=== PATIENT | male | born 1940 | race African-American/Black ===

== ENCOUNTER 2023-09-17 13:43 | Inpatient (IN) | payer MEDICARE ==
[~2023-09-17] VITALS: Ht 172.7 cm; Wt 77.1 kg
[2023-09-17] MEDS ORDERED: NATE60TA4 PO (14:07)
[2023-09-17] MEDS ORDERED: HYDR-4209 PO (14:07)
[2023-09-17] MEDS ORDERED: FINA5TAB11 PO (14:07)
[2023-09-17] MEDS ORDERED: PANT40TA49 PO (14:07)
[2023-09-17] MEDS ORDERED: POLY17PO4 PO (14:07)
[2023-09-17] MEDS ORDERED: APIX2.5T PO (14:07)
[2023-09-17] MEDS ORDERED: PREG75CA PO (14:07)
[2023-09-17] MEDS ORDERED: SITA50TA PO (14:07)
[2023-09-17] MEDS ORDERED: PATI8.4P PO (14:07)
[2023-09-17] MEDS ORDERED: AMLO-212 PO (14:07)
[2023-09-17] MEDS ORDERED: CARV6.252 PO (14:07)
[2023-09-17] MEDS ORDERED: OXYB5TAB16 PO (14:07)
[2023-09-17] MEDS ORDERED: ESCI5TAB PO (14:07)
[2023-09-17] MEDS ORDERED: ATOR40TA PO (14:07)
[2023-09-17 14:28] LABS: BASOPHILS % (AUTO) 0.3 % (0.0-2.0); EOSINOPHILS # (AUTO) 0.2 K/uL (0.0-0.7); EOSINOPHILS % (AUTO) 1.9 % (0.0-7.0); HEMATOCRIT 25.3 % (36.7-47.1); HEMOGLOBIN 8.1 g/dL (12.5-16.3); LYMPHOCYTES % (AUTO) 10.3 % (20.5-51.5); MEAN CORPUSCULAR HEMOGLOBIN 26.5 uug (23.8-33.4); MEAN CORPUSCULAR HGB CONC 32 g/dL (32.5-36.3); MEAN CORPUSCULAR VOLUME 82.6 fL (73.0-96.2); MONOCYTES # (AUTO) 0.8 K/uL (0.1-1.30); MONOCYTES % (AUTO) 8.8 % (0.0-11.0); NEUTROPHILS # (AUTO) 7.5 K/uL (1.8-8.9); NEUTROPHILS % (AUTO) 78.7 % (38.5-71.5); PLATELET COUNT (AUTO) 268 K/uL (152-348); RED BLOOD CELL COUNT(AUTO) 3.07 MIL/uL (4.06-5.63); WHITE BLOOD COUNT (AUTO) 9.6 K/uL (3.6-10.2)
[2023-09-17 14:42] LABS: DIFFERENTIAL COMMENT 1
[2023-09-17 14:52] LABS: MAGNESIUM 2.6 mg/dL (1.8-2.4)
[2023-09-17 14:53] LABS: CALCIUM 8.9 mg/dL (8.5-10.1); CARBON DIOXIDE 22 mmol/L (21-32); CHLORIDE 107 mmol/L (98-107); CREATININE 2.7 mg/dL (0.6-1.3); GLUCOSE 99 mg/dL (74-106); POTASSIUM 5.8 mmol/L (3.5-5.1); SODIUM SERUM 141 mmol/L (136-145); UREA NITROGEN, BLOOD 68 mg/dL (7-18)
[2023-09-17 14:56] LABS: ETHANOL < 3 MG/DL (0-10)
[2023-09-17 14:57] LABS: *BILIRUBIN,URIN NEGATIVE (NEGATIVE); *BLOOD, URINE 1+ (NEGATIVE); *CLARITY,URINE CLEAR (CLEAR); *COLOR,URINE YELLOW (YELLOW); *KETONES,URINE NEGATIVE (NEGATIVE); *UROBILINOGEN,URINE 0.2 E.U./dl (NORMAL); LEUKOCYTE ESTERASE ,URINE 2+ (NEGATIVE); NITRITE, URINE POSITIVE (NEGATIVE); PH,URINE >=9.0 (5.0-8.0); UGLUCOSE NEGATIVE (NEGATIVE)
[2023-09-17 15:04] LABS: AMMONIA < 10 umol/L (11-32)
[2023-09-17 15:06] LABS: *PROTEIN,URINE 3+ (NEGATIVE)
[2023-09-17 15:06] LABS: ALANINE AMINOTRANSFERASE 18 U/L (16-63); ALBUMIN 2.8 g/dL (3.4-5.0); ALKALINE PHOSPHATASE 107 U/L (50-136); ASPARTATE AMINOTRANSFERASE 16 U/L (15-37); BILIRUBIN,DIRECT < 0.1 mg/dL (0.0-0.2); BILIRUBIN,TOTAL 0.3 mg/dL (0.2-1.0); C-REACTIVE PROTEIN 11.22 mg/dL (0.00-0.30); NT-PRO BNP 4695 pg/mL (0-125); TOTAL PROTEIN, SERUM 7.7 g/dL (6.4-8.2)
[2023-09-17 15:08] LABS: THYROID STIMULATING HORMONE 1.325 mIU/mL (0.358-3.740)
[2023-09-17 15:08] LABS: *AMPHETAMINE, URINE NEGATIVE (NEGATIVE); *BARBITURATE, URINE NEGATIVE (NEGATIVE); *BENZODIAZEPINE, URINE NEGATIVE (NEGATIVE); *CANNABINOID, URINE POSITIVE (NEGATIVE); *COCCAINE, URINE NEGATIVE (NEGATIVE); *OPIATE, URINE NEGATIVE (NEGATIVE); *PHENCYCLIDINE SCREEN,URINE NEGATIVE (NEGATIVE)
[2023-09-17] MEDS: PIPERACILLIN SODIUM/TAZOBACTAM 3.375 G in IV DEXTROSE 5% 50 ML IV ONE ×2 (15:15→17:55)
[2023-09-17] MEDS ORDERED: AZITHROMYCIN 250 MG TABLET PO ONE (15:15)
[2023-09-17 15:23] LABS: FENTANYL, URINE NEGATIVE (NEGATIVE)
[2023-09-17] MEDS ORDERED: AZITHROMYCIN 250 MG TABLET ONE (15:23)
[2023-09-17 15:29] LABS: BACTERIA,URINE MANY /HPF (NONE SEEN); RBC,URINE 0-3 /HPF (0-3); TRIPLE PHOSPHATE CRYSTAL,UR FEW /HPF (NONE SEEN)
[2023-09-17] MEDS ORDERED: ALBUTEROL SULFATE 2.5 MG/3 ML NEBU NEB ONE (17:00)
[2023-09-17 17:20] VITALS: O2SAT 96
[2023-09-17 17:45] VITALS: O2SAT 100
[2023-09-17] MEDS ORDERED: PIPERACILLIN/TAZOBACTAM/D5W 50 ML IV ONE (17:49)
[2023-09-17] MEDS ORDERED: ACETAMINOPHEN 325 MG TABLET PO PRN (19:30)
[2023-09-17] MEDS ORDERED: HYDROCODONE/APAP 5-325MG TABLET PO PRN (19:30)
[2023-09-17] MEDS ORDERED: MORPHINE SULFATE 2 MG/1 ML DISP.SYRIN IV PRN (19:30)
[2023-09-17] MEDS ORDERED: ONDANSETRON 4 MG/2 ML VIAL IV PRN (19:30)
[2023-09-17] MEDS ORDERED: SODIUM POLYSTYRENE SULFONATE 15 G/60 ML LIQUID UDC PO ONE (19:30)
[2023-09-17] MEDS ORDERED: IV 1/2NS 1000 ML 1,000 ML IV PRN (19:30)
[2023-09-17] MEDS ORDERED: FINASTERIDE 5 MG TABLET ONE (21:25)
[2023-09-17] MEDS ORDERED: ATORVASTATIN 20 MG TABLET ONE (21:26)
[2023-09-17] MEDS ORDERED: SODIUM POLYSTYRENE SULFONATE 15 G/60 ML LIQUID UDC ONE (21:26)
[2023-09-17] MEDS ORDERED: VANCOMYCIN IV 1,500 MG in IV DEXTROSE 5% 500 ML IV ONE (21:30)
[2023-09-17] MEDS: ATORVASTATIN 40 MG TABLET PO SCH (21:35)
[2023-09-17] MEDS: FINASTERIDE 5 MG TABLET PO SCH (21:36)
[2023-09-17] MEDS ORDERED: VANCOMYCIN 1000 MG VIAL ONE (23:37)
[2023-09-17] MEDS ORDERED: VANCOMYCIN HCL 500 MG VIAL ONE (23:37)
[2023-09-18] VITALS (7 sets, daily range): BP systolic 122; BP diastolic 63; TEMP 98.4; O2SAT 95–100
[2023-09-18] MEDS ORDERED: PIPERACILLIN/TAZOBACTAM/D5W 50 ML ONE ×3 (01:46→12:46)
[2023-09-18] MEDS: PIPERACILLIN/TAZO 2.25 G in IV DEXTROSE 5% 50 ML IV SCH ×2 (01:58→04:14)
[2023-09-18] MEDS: PANTOPRAZOLE SODIUM 40 MG TABLET.DR PO SCH (07:00)
[2023-09-18] MEDS ORDERED: PANTOPRAZOLE SODIUM 40 MG TABLET.DR PO ONE (08:31)
[2023-09-18] MEDS ORDERED: MIRALAX 17 GM POWD.PACK ONE (08:31)
[2023-09-18] MEDS ORDERED: PREGABALIN 25 MG CAPSULE ONE ×2 (08:32→16:32)
[2023-09-18] MEDS ORDERED: PREGABALIN 50 MG CAPSULE ONE ×2 (08:32→16:33)
[2023-09-18] MEDS ORDERED: CARVEDILOL 6.25 MG TABLET ONE ×2 (08:32→16:32)
[2023-09-18] MEDS ORDERED: AMLODIPINE 5 MG TABLET ONE (08:32)
[2023-09-18] MEDS ORDERED: ESCITALOPRAM OXALATE 10 MG TABLET ONE ×2 (08:32→16:32)
[2023-09-18] MEDS: MIRALAX 17 GM POWD.PACK PO SCH (08:44)
[2023-09-18] MEDS: APIXABAN 2.5 MG TABLET PO SCH ×2 (08:44→17:20)
[2023-09-18] MEDS: CARVEDILOL 6.25 MG TABLET PO SCH ×2 (08:44→17:13)
[2023-09-18] MEDS: AMLODIPINE 5 MG TABLET PO SCH (08:44)
[2023-09-18] MEDS: PREGABALIN 25 MG CAPSULE PO SCH ×2 (08:44→16:38)
[2023-09-18] MEDS: ESCITALOPRAM OXALATE 10 MG TABLET PO SCH ×2 (08:44→16:37)
[2023-09-18] MEDS ORDERED: PANTOPRAZOLE SODIUM 40 MG TABLET.DR PO SCH (09:00)
[2023-09-18] MEDS ORDERED: DEXTROSE 50% 50 ML DISP.SYRIN IV PRN (12:00)
[2023-09-18] MEDS: ALBUTEROL SULFATE 2.5 MG/ 0.5 ML NEBU NEB SCH ×3 (12:00→19:55)
[2023-09-18] MEDS: ACETYLCYSTEINE 10% 4ML VIAL NEB SCH ×2 (12:00→15:19)
[2023-09-18] MEDS ORDERED: PIPERACILLIN/TAZO 2.25 G in IV DEXTROSE 5% 50 ML IV SCH (12:00)
[2023-09-18] MEDS: IPRATROPIUM BROMIDE 0.5 MG/2.5 ML NEBU NEB SCH ×3 (12:00→19:54)
[2023-09-18] MEDS ORDERED: FUROSEMIDE 40 MG/4 ML VIAL ONE ×2 (12:46→21:05)
[2023-09-18] MEDS: FUROSEMIDE 40 MG/4 ML VIAL IV SCH ×2 (12:56→21:08)
[2023-09-18] MEDS ORDERED: ALBUTEROL SULFATE 2.5 MG/3 ML NEBU ONE ×3 (13:23→19:45)
[2023-09-18] MEDS ORDERED: IPRATROPIUM BROMIDE 0.5 MG/2.5 ML NEBU ONE ×3 (13:23→19:45)
[2023-09-18] MEDS ORDERED: ACETYLCYSTEINE 10% 4ML VIAL ONE ×2 (13:23→15:21)
[2023-09-18] MEDS ORDERED: VANCOMYCIN IV 1,000 MG in IV DEXTROSE 5% 250 ML IV ONE (15:00)
[2023-09-18] MEDS: BLOOD SUGAR DIAGNOSTIC 1 EACH STRIP VI SCH ×2 (16:43→21:18)
[2023-09-18 16:58] LABS: BASOPHILS % (AUTO) 0.2 % (0.0-2.0); EOSINOPHILS % (AUTO) 0.1 % (0.0-7.0); HEMATOCRIT 24.3 % (36.7-47.1); HEMOGLOBIN 7.7 g/dL (12.5-16.3); LYMPHOCYTES # (AUTO) 0.8 K/uL (0.8-4.8); MEAN CORPUSCULAR HEMOGLOBIN 26.7 uug (23.8-33.4); MEAN CORPUSCULAR HGB CONC 32 g/dL (32.5-36.3); MEAN CORPUSCULAR VOLUME 84.3 fL (73.0-96.2); MONOCYTES # (AUTO) 0.8 K/uL (0.1-1.30); MONOCYTES % (AUTO) 6.9 % (0.0-11.0); NEUTROPHILS # (AUTO) 9.4 K/uL (1.8-8.9); NEUTROPHILS % (AUTO) 85.8 % (38.5-71.5); PLATELET COUNT (AUTO) 244 K/uL (152-348); RED BLOOD CELL COUNT(AUTO) 2.88 MIL/uL (4.06-5.63)
[2023-09-18] MEDS ORDERED: INSULIN REGULAR, HUMAN 300 UNIT/3 ML VIAL ONE (16:59)
[2023-09-18 17:02] LABS: DIFFERENTIAL COMMENT 1
[2023-09-18 17:09] LABS: IRON, SERUM 13 ug/dL (50-175)
[2023-09-18] MEDS: INSULIN REGULAR, HUMAN 300 UNIT/3 ML VIAL SQ PRN (17:12)
[2023-09-18 17:13] LABS: ALANINE AMINOTRANSFERASE 10 U/L (16-63); ALBUMIN 2.6 g/dL (3.4-5.0); ALKALINE PHOSPHATASE 105 U/L (50-136); ASPARTATE AMINOTRANSFERASE 12 U/L (15-37); BILIRUBIN,TOTAL 0.4 mg/dL (0.2-1.0); CALCIUM 8.1 mg/dL (8.5-10.1); CARBON DIOXIDE 19 mmol/L (21-32); CHLORIDE 107 mmol/L (98-107); CREATININE 2.9 mg/dL (0.6-1.3); GLUCOSE 154 mg/dL (74-106); MAGNESIUM 2.5 mg/dL (1.8-2.4); PHOSPHOROUS 6.9 mg/dL (2.5-4.9); POTASSIUM 5.9 mmol/L (3.5-5.1); SODIUM SERUM 139 mmol/L (136-145); TOTAL PROTEIN, SERUM 7.5 g/dL (6.4-8.2); UREA NITROGEN, BLOOD 72 mg/dL (7-18)
[2023-09-18] MEDS ORDERED: LIDOCAINE 2%-EPI 1:100,000 20 ML VIAL IJ ONE (18:00)
[2023-09-18] MEDS ORDERED: FINASTERIDE 5 MG TABLET ONE (21:10)
[2023-09-18] MEDS ORDERED: ATORVASTATIN 20 MG TABLET ONE (21:10)
[2023-09-18] MEDS: ATORVASTATIN 40 MG TABLET PO SCH (21:17)
[2023-09-18] MEDS: FINASTERIDE 5 MG TABLET PO SCH (21:18)
[2023-09-18] MEDS ORDERED: CEFEPIME HCL 1 G in IV DEXTROSE 5% 50 ML IV SCH (22:00)
[2023-09-18] MEDS ORDERED: CEFEPIME HCL 1 G VIAL ONE (22:56)
[2023-09-19] VITALS (19 sets, daily range): BP systolic 122–141; BP diastolic 49–65; TEMP 97–98.2; O2SAT 94–100
[2023-09-19] MEDS: ALBUTEROL SULFATE 2.5 MG/ 0.5 ML NEBU NEB SCH ×5 (00:15→20:56)
[2023-09-19] MEDS: ACETYLCYSTEINE 10% 4ML VIAL NEB SCH ×4 (00:16→23:11)
[2023-09-19] MEDS: PANTOPRAZOLE SODIUM 40 MG TABLET.DR PO SCH (06:38)
[2023-09-19] MEDS: BLOOD SUGAR DIAGNOSTIC 1 EACH STRIP VI SCH ×4 (06:44→21:03)
[2023-09-19] MEDS: IPRATROPIUM BROMIDE 0.5 MG/2.5 ML NEBU NEB SCH ×4 (08:18→20:56)
[2023-09-19] MEDS: PREGABALIN 25 MG CAPSULE PO SCH ×2 (09:07→16:37)
[2023-09-19] MEDS: FUROSEMIDE 40 MG/4 ML VIAL IV SCH ×2 (09:07→21:01)
[2023-09-19] MEDS: ESCITALOPRAM OXALATE 10 MG TABLET PO SCH ×2 (09:08→16:38)
[2023-09-19] MEDS: CARVEDILOL 6.25 MG TABLET PO SCH ×2 (09:08→16:38)
[2023-09-19] MEDS: AMLODIPINE 5 MG TABLET PO SCH (09:08)
[2023-09-19] MEDS: APIXABAN 2.5 MG TABLET PO SCH (09:09)
[2023-09-19] MEDS: CEFEPIME HCL 1 G in IV DEXTROSE 5% 50 ML IV SCH (09:18)
[2023-09-19] MEDS: MIRALAX 17 GM POWD.PACK PO SCH (09:18)
[2023-09-19] MEDS ORDERED: SODIUM POLYSTYRENE SULFONATE 15 G/60 ML LIQUID UDC PO ONE (10:00)
[2023-09-19 10:52] LABS: ABG HCO3 20.4 mmol/L (22.0-26.0); ABG PCO2 50.9 mmHg (35.0-48.0); ABG PO2 43.2 mmHg (75.0-100.0); ABG TOTAL HEMOGLOBIN 7.7 G/dL (14.0-18.0); AaDO2 69.2 mmHg; COHb 0.8 % (0.0-3.9); MetHb 0.2 % (0.0-1.5); O2Hb 73.6 % (94.0-97.0)
[2023-09-19 11:00] LABS: ALANINE AMINOTRANSFERASE 13 U/L (16-63); ALBUMIN 2.3 g/dL (3.4-5.0); ALKALINE PHOSPHATASE 86 U/L (50-136); ASPARTATE AMINOTRANSFERASE 15 U/L (15-37); BILIRUBIN,TOTAL 0.3 mg/dL (0.2-1.0); CARBON DIOXIDE 21 mmol/L (21-32); CHLORIDE 108 mmol/L (98-107); CREATINE KINASE, TOTAL 125 U/L (39-308); CREATININE 3.1 mg/dL (0.6-1.3); GLUCOSE 132 mg/dL (74-106); MAGNESIUM 2.4 mg/dL (1.8-2.4); PHOSPHOROUS 6.9 mg/dL (2.5-4.9); POTASSIUM 5.3 mmol/L (3.5-5.1); SODIUM SERUM 140 mmol/L (136-145); TOTAL PROTEIN, SERUM 6.6 g/dL (6.4-8.2); UREA NITROGEN, BLOOD 74 mg/dL (7-18); VANCOMYCIN,RANDOM 9.9 ug/mL (20.0-30.0)
[2023-09-19 11:06] LABS: BASOPHILS % (AUTO) 0.1 % (0.0-2.0); EOSINOPHILS # (AUTO) 0.2 K/uL (0.0-0.7); HEMATOCRIT 21.2 % (36.7-47.1); LYMPHOCYTES # (AUTO) 0.8 K/uL (0.8-4.8); LYMPHOCYTES % (AUTO) 9.3 % (20.5-51.5); MEAN CORPUSCULAR HEMOGLOBIN 26.9 uug (23.8-33.4); MEAN CORPUSCULAR HGB CONC 32 g/dL (32.5-36.3); MEAN CORPUSCULAR VOLUME 83.1 fL (73.0-96.2); MONOCYTES # (AUTO) 0.9 K/uL (0.1-1.30); MONOCYTES % (AUTO) 10.5 % (0.0-11.0); NEUTROPHILS # (AUTO) 6.4 K/uL (1.8-8.9); NEUTROPHILS % (AUTO) 78.1 % (38.5-71.5); PLATELET COUNT (AUTO) 176 K/uL (152-348); RED BLOOD CELL COUNT(AUTO) 2.55 MIL/uL (4.06-5.63); RED CELL DISTRIBUTION WIDTH 16.8 % (12.1-16.2); WHITE BLOOD COUNT (AUTO) 8.2 K/uL (3.6-10.2)
[2023-09-19 12:24] LABS: DIFFERENTIAL COMMENT 1
[2023-09-19 12:47] LABS: HEMOGLOBIN 6.9 g/dL (12.5-16.3)
[2023-09-19 12:48] LABS: LYMPHOCYTES % (MANUAL) 0 % (20-40); NEUTROPHILS % (MANUAL) 0 % (42-75)
[2023-09-19] MEDS: INSULIN REGULAR, HUMAN 300 UNIT/3 ML VIAL SQ PRN ×2 (17:30→21:15)
[2023-09-19] MEDS: FINASTERIDE 5 MG TABLET PO SCH (21:01)
[2023-09-19] MEDS: ATORVASTATIN 40 MG TABLET PO SCH (21:01)
[2023-09-20] VITALS (11 sets, daily range): BP systolic 129–150; BP diastolic 62–73; TEMP 97.5–98.4; O2SAT 93–99
[2023-09-20 03:09] LABS: PTH, INTACT 65 pg/mL (15-65)
[2023-09-20] MEDS: PANTOPRAZOLE SODIUM 40 MG TABLET.DR PO SCH (06:29)
[2023-09-20] MEDS: BLOOD SUGAR DIAGNOSTIC 1 EACH STRIP VI SCH ×4 (06:42→20:39)
[2023-09-20 07:22] LABS: CALCIUM 7.8 mg/dL (8.5-10.1); CARBON DIOXIDE 19 mmol/L (21-32); CHLORIDE 110 mmol/L (98-107); CREATININE 2.8 mg/dL (0.6-1.3); GLUCOSE 59 mg/dL (74-106); MAGNESIUM 2.5 mg/dL (1.8-2.4); PHOSPHOROUS 6.7 mg/dL (2.5-4.9); SODIUM SERUM 141 mmol/L (136-145); UREA NITROGEN, BLOOD 71 mg/dL (7-18)
[2023-09-20 07:33] LABS: BASOPHILS % (AUTO) 0.4 % (0.0-2.0); DIFFERENTIAL COMMENT 0; EOSINOPHILS # (AUTO) 0.3 K/uL (0.0-0.7); EOSINOPHILS % (AUTO) 3.8 % (0.0-7.0); HEMATOCRIT 28.5 % (36.7-47.1); HEMOGLOBIN 8.7 g/dL (12.5-16.3); LYMPHOCYTES # (AUTO) 0.8 K/uL (0.8-4.8); LYMPHOCYTES % (AUTO) 10.2 % (20.5-51.5); MEAN CORPUSCULAR HEMOGLOBIN 27.7 uug (23.8-33.4); MEAN CORPUSCULAR HGB CONC 30 g/dL (32.5-36.3); MONOCYTES % (AUTO) 12.8 % (0.0-11.0); NEUTROPHILS # (AUTO) 5.7 K/uL (1.8-8.9); NEUTROPHILS % (AUTO) 72.8 % (38.5-71.5); PLATELET COUNT (AUTO) 155 K/uL (152-348); RED BLOOD CELL COUNT(AUTO) 3.13 MIL/uL (4.06-5.63); RED CELL DISTRIBUTION WIDTH 17.2 % (12.1-16.2); WHITE BLOOD COUNT (AUTO) 7.9 K/uL (3.6-10.2)
[2023-09-20 07:42] LABS: POTASSIUM 4.7 mmol/L (3.5-5.1)
[2023-09-20] MEDS: IPRATROPIUM BROMIDE 0.5 MG/2.5 ML NEBU NEB SCH ×4 (08:18→19:54)
[2023-09-20] MEDS: ACETYLCYSTEINE 10% 4ML VIAL NEB SCH ×3 (08:19→22:30)
[2023-09-20] MEDS: ALBUTEROL SULFATE 2.5 MG/ 0.5 ML NEBU NEB SCH ×4 (08:19→19:54)
[2023-09-20] MEDS: FUROSEMIDE 40 MG/4 ML VIAL IV SCH ×2 (08:40→20:25)
[2023-09-20] MEDS: ESCITALOPRAM OXALATE 10 MG TABLET PO SCH ×2 (08:40→17:23)
[2023-09-20] MEDS: PREGABALIN 25 MG CAPSULE PO SCH ×2 (08:40→17:23)
[2023-09-20] MEDS: CEFEPIME HCL 1 G in IV DEXTROSE 5% 50 ML IV SCH (08:41)
[2023-09-20] MEDS: CARVEDILOL 6.25 MG TABLET PO SCH ×2 (08:41→17:23)
[2023-09-20] MEDS: AMLODIPINE 5 MG TABLET PO SCH (08:41)
[2023-09-20] MEDS: MIRALAX 17 GM POWD.PACK PO SCH (08:41)
[2023-09-20 09:07] LABS: A/G RATIO 0.7 (0.7-1.7); ALBUMIN 2.5 g/dL (2.9-4.4); ALPHA-1-GLOBULIN 0.4 g/dL (0.0-0.4); ALPHA-2-GLOBULIN 0.8 g/dL (0.4-1.0); BETA GLOBULIN 0.9 g/dL (0.7-1.3); GAMMA GLOBULIN 1.3 g/dL (0.4-1.8); GLOBULIN, TOTAL 3.4 g/dL (2.2-3.9); M-SPIKE Not Observed g/dL (Not Observed)
[2023-09-20] MEDS: INSULIN REGULAR, HUMAN 300 UNIT/3 ML VIAL SQ PRN ×2 (12:20→20:43)
[2023-09-20] MEDS ORDERED: MEROPENEM 500 MG in IV NORMAL SALINE 50 ML IV SCH (20:15)
[2023-09-20] MEDS: ATORVASTATIN 40 MG TABLET PO SCH (20:25)
[2023-09-20] MEDS: FINASTERIDE 5 MG TABLET PO SCH (20:25)
[2023-09-20] MEDS ORDERED: MEROPENEM 500 MG in IV NORMAL SALINE 50 ML IV ONE (21:00)
[2023-09-20] MEDS ORDERED: ERYTHROMYCIN 0.5% OPHT OINT 3.5 GM TUBE ONE (21:02)
[2023-09-20] MEDS ORDERED: MEROPENEM 500MG/NS 50ML PB ***ER PYXIS ONLY IV ONE (21:03)
[2023-09-20] MEDS: ERYTHROMYCIN 0.5% OPHT OINT 3.5 GM TUBE EACHEYE SCH (21:28)
[2023-09-21] VITALS (12 sets, daily range): BP systolic 116–153; BP diastolic 54–69; TEMP 97.7–99; O2SAT 95–100
[2023-09-21] MEDS: PANTOPRAZOLE SODIUM 40 MG TABLET.DR PO SCH (07:00)
[2023-09-21] MEDS: BLOOD SUGAR DIAGNOSTIC 1 EACH STRIP VI SCH ×4 (07:00→21:09)
[2023-09-21] MEDS: ALBUTEROL SULFATE 2.5 MG/ 0.5 ML NEBU NEB SCH ×4 (07:35→19:56)
[2023-09-21] MEDS: IPRATROPIUM BROMIDE 0.5 MG/2.5 ML NEBU NEB SCH ×4 (07:35→19:56)
[2023-09-21] MEDS: ACETYLCYSTEINE 10% 4ML VIAL NEB SCH ×3 (07:35→23:03)
[2023-09-21 08:35] LABS: CALCIUM 8.1 mg/dL (8.5-10.1); CARBON DIOXIDE 26 mmol/L (21-32); CHLORIDE 107 mmol/L (98-107); CREATININE 2.7 mg/dL (0.6-1.3); GLUCOSE 93 mg/dL (74-106); POTASSIUM 4.2 mmol/L (3.5-5.1); SODIUM SERUM 143 mmol/L (136-145); UREA NITROGEN, BLOOD 65 mg/dL (7-18)
[2023-09-21] MEDS ORDERED: AMIODARONE HCL IV 450 MG in IV DEXTROSE 5% 250 ML IV PRN (09:00)
[2023-09-21] MEDS ORDERED: AMIODARONE HCL IV 150 MG in IV DEXTROSE 5% 100 ML IV ONE (09:00)
[2023-09-21] MEDS: CARVEDILOL 6.25 MG TABLET PO SCH ×2 (09:00→17:18)
[2023-09-21] MEDS: AMLODIPINE 5 MG TABLET PO SCH (09:00)
[2023-09-21] MEDS: ERYTHROMYCIN 0.5% OPHT OINT 3.5 GM TUBE EACHEYE SCH ×2 (09:32→21:31)
[2023-09-21] MEDS: MIRALAX 17 GM POWD.PACK PO SCH (09:32)
[2023-09-21] MEDS: PREGABALIN 25 MG CAPSULE PO SCH ×2 (09:33→17:18)
[2023-09-21] MEDS: FUROSEMIDE 40 MG TABLET PO SCH (09:58)
[2023-09-21] MEDS: INSULIN REGULAR, HUMAN 300 UNIT/3 ML VIAL SQ PRN (12:40)
[2023-09-21] MEDS: MEROPENEM 500 MG in IV NORMAL SALINE 50 ML IV SCH (13:45)
[2023-09-21] MEDS ORDERED: ESCITALOPRAM OXALATE 10 MG TABLET PO SCH (17:00)
[2023-09-21] MEDS: AMIODARONE HCL 200 MG TABLET PO SCH (21:09)
[2023-09-21] MEDS: ATORVASTATIN 40 MG TABLET PO SCH (21:10)
[2023-09-21] MEDS: FINASTERIDE 5 MG TABLET PO SCH (21:10)
[2023-09-22] VITALS (17 sets, daily range): BP systolic 112–175; BP diastolic 47–78; TEMP 97.4–98.8; O2SAT 93–100
[2023-09-22] MEDS: MEROPENEM 500 MG in IV NORMAL SALINE 50 ML IV SCH ×2 (01:12→13:12)
[2023-09-22] MEDS: PANTOPRAZOLE SODIUM 40 MG TABLET.DR PO SCH (06:29)
[2023-09-22] MEDS: BLOOD SUGAR DIAGNOSTIC 1 EACH STRIP VI SCH ×4 (06:33→20:46)
[2023-09-22] MEDS: ALBUTEROL SULFATE 2.5 MG/ 0.5 ML NEBU NEB SCH ×4 (07:35→18:22)
[2023-09-22] MEDS: IPRATROPIUM BROMIDE 0.5 MG/2.5 ML NEBU NEB SCH ×4 (07:35→18:22)
[2023-09-22] MEDS: ACETYLCYSTEINE 10% 4ML VIAL NEB SCH ×3 (07:35→23:22)
[2023-09-22] MEDS: PREGABALIN 25 MG CAPSULE PO SCH ×2 (08:35→16:48)
[2023-09-22] MEDS: CARVEDILOL 6.25 MG TABLET PO SCH ×2 (08:35→16:49)
[2023-09-22] MEDS: AMIODARONE HCL 200 MG TABLET PO SCH ×2 (08:35→20:57)
[2023-09-22] MEDS: AMLODIPINE 5 MG TABLET PO SCH (08:35)
[2023-09-22] MEDS: FUROSEMIDE 40 MG TABLET PO SCH (08:35)
[2023-09-22] MEDS: MIRALAX 17 GM POWD.PACK PO SCH (08:37)
[2023-09-22] MEDS: ERYTHROMYCIN 0.5% OPHT OINT 3.5 GM TUBE EACHEYE SCH ×2 (08:37→20:31)
[2023-09-22 11:11] LABS: BASOPHILS % (AUTO) 0.3 % (0.0-2.0); EOSINOPHILS # (AUTO) 0.4 K/uL (0.0-0.7); HEMATOCRIT 25.7 % (36.7-47.1); HEMOGLOBIN 8.4 g/dL (12.5-16.3); LYMPHOCYTES # (AUTO) 0.8 K/uL (0.8-4.8); LYMPHOCYTES % (AUTO) 10.4 % (20.5-51.5); MEAN CORPUSCULAR HEMOGLOBIN 27.1 uug (23.8-33.4); MEAN CORPUSCULAR HGB CONC 33 g/dL (32.5-36.3); MEAN CORPUSCULAR VOLUME 83.2 fL (73.0-96.2); MONOCYTES # (AUTO) 0.8 K/uL (0.1-1.30); MONOCYTES % (AUTO) 10.3 % (0.0-11.0); NEUTROPHILS # (AUTO) 5.7 K/uL (1.8-8.9); PLATELET COUNT (AUTO) 202 K/uL (152-348); RED BLOOD CELL COUNT(AUTO) 3.09 MIL/uL (4.06-5.63); RED CELL DISTRIBUTION WIDTH 16.3 % (12.1-16.2); WHITE BLOOD COUNT (AUTO) 7.7 K/uL (3.6-10.2)
[2023-09-22 11:43] LABS: DIFFERENTIAL COMMENT 1
[2023-09-22] MEDS: INSULIN REGULAR, HUMAN 300 UNIT/3 ML VIAL SQ PRN ×2 (11:59→16:52)
[2023-09-22 12:30] LABS: CALCIUM 7.8 mg/dL (8.5-10.1); CARBON DIOXIDE 24 mmol/L (21-32); CHLORIDE 109 mmol/L (98-107); CREATININE 2.7 mg/dL (0.6-1.3); GLUCOSE 162 mg/dL (74-106); MAGNESIUM 2.1 mg/dL (1.8-2.4); PHOSPHOROUS 4.9 mg/dL (2.5-4.9); POTASSIUM 4.4 mmol/L (3.5-5.1); SODIUM SERUM 145 mmol/L (136-145); UREA NITROGEN, BLOOD 61 mg/dL (7-18)
[2023-09-22] MEDS ORDERED: FUROSEMIDE 40 MG TABLET PO SCH (17:00)
[2023-09-22] MEDS: FINASTERIDE 5 MG TABLET PO SCH (20:31)
[2023-09-22] MEDS: ATORVASTATIN 40 MG TABLET PO SCH (20:31)
[2023-09-23] VITALS (8 sets, daily range): BP systolic 111–153; BP diastolic 64–68; TEMP 97–98.2; O2SAT 96–99
[2023-09-23] MEDS: MEROPENEM 500 MG in IV NORMAL SALINE 50 ML IV SCH ×2 (00:43→13:07)
[2023-09-23 06:40] LABS: BASOPHILS % (AUTO) 0.4 % (0.0-2.0); EOSINOPHILS # (AUTO) 0.5 K/uL (0.0-0.7); EOSINOPHILS % (AUTO) 7.2 % (0.0-7.0); HEMATOCRIT 26.2 % (36.7-47.1); HEMOGLOBIN 8.7 g/dL (12.5-16.3); LYMPHOCYTES # (AUTO) 1.1 K/uL (0.8-4.8); LYMPHOCYTES % (AUTO) 15.2 % (20.5-51.5); MEAN CORPUSCULAR HEMOGLOBIN 27.4 uug (23.8-33.4); MEAN CORPUSCULAR HGB CONC 33 g/dL (32.5-36.3); MEAN CORPUSCULAR VOLUME 82.8 fL (73.0-96.2); MONOCYTES # (AUTO) 0.8 K/uL (0.1-1.30); MONOCYTES % (AUTO) 11.4 % (0.0-11.0); NEUTROPHILS # (AUTO) 4.7 K/uL (1.8-8.9); NEUTROPHILS % (AUTO) 65.8 % (38.5-71.5); PLATELET COUNT (AUTO) 219 K/uL (152-348); RED BLOOD CELL COUNT(AUTO) 3.16 MIL/uL (4.06-5.63); RED CELL DISTRIBUTION WIDTH 16.1 % (12.1-16.2); WHITE BLOOD COUNT (AUTO) 7.2 K/uL (3.6-10.2)
[2023-09-23] MEDS: PANTOPRAZOLE SODIUM 40 MG TABLET.DR PO SCH (06:45)
[2023-09-23 06:50] LABS: DIFFERENTIAL COMMENT 1
[2023-09-23] MEDS: BLOOD SUGAR DIAGNOSTIC 1 EACH STRIP VI SCH ×2 (06:50→11:49)
[2023-09-23 06:59] LABS: CARBON DIOXIDE 25 mmol/L (21-32); CHLORIDE 107 mmol/L (98-107); CREATININE 2.8 mg/dL (0.6-1.3); GLUCOSE 72 mg/dL (74-106); MAGNESIUM 2.1 mg/dL (1.8-2.4); PHOSPHOROUS 5.5 mg/dL (2.5-4.9); POTASSIUM 4.7 mmol/L (3.5-5.1); SODIUM SERUM 143 mmol/L (136-145); UREA NITROGEN, BLOOD 63 mg/dL (7-18)
[2023-09-23] MEDS: ACETYLCYSTEINE 10% 4ML VIAL NEB SCH ×2 (07:35→15:30)
[2023-09-23] MEDS: ALBUTEROL SULFATE 2.5 MG/ 0.5 ML NEBU NEB SCH ×3 (07:35→15:30)
[2023-09-23] MEDS: IPRATROPIUM BROMIDE 0.5 MG/2.5 ML NEBU NEB SCH ×3 (07:35→15:30)
[2023-09-23] MEDS ORDERED: FUROSEMIDE 40 MG TABLET PO SCH (09:00)
[2023-09-23] MEDS: PREGABALIN 25 MG CAPSULE PO SCH (09:34)
[2023-09-23] MEDS: AMLODIPINE 5 MG TABLET PO SCH (09:34)
[2023-09-23] MEDS: AMIODARONE HCL 200 MG TABLET PO SCH (09:35)
[2023-09-23] MEDS: CARVEDILOL 6.25 MG TABLET PO SCH (09:35)
[2023-09-23] MEDS: MIRALAX 17 GM POWD.PACK PO SCH (09:35)
[2023-09-23] MEDS: ERYTHROMYCIN 0.5% OPHT OINT 3.5 GM TUBE EACHEYE SCH (09:37)
[2023-09-23] MEDS: INSULIN REGULAR, HUMAN 300 UNIT/3 ML VIAL SQ PRN (11:53)
[2023-09-23] MEDS ORDERED: AMIO200T6 PO (14:20)
[2023-09-23] MEDS ORDERED: MERO500V23 IV (14:20)
== END 2023-09-23 17:15 | DRG 177 ==
LOC: ER 13:48 → TRANSITION 20:46 → TELE3 09-18 21:38 → TELE-TD3 09-21 09:05 → TELE3 09-21 16:25 → MEDSURG3 09-23 09:15
PROVIDERS: ADMIT Internal Medicine; ATTEND Nurse Practitioner Acute Care
PROC: 05HY33Z Insertion of Infusion Device into Upper Vein, Percutaneous Approach (ICD-10-PCS; 2023-09-18)
PROC: 30233N1 Transfusion of Nonautologous Red Blood Cells into Peripheral Vein, Percutaneous Approach (ICD-10-PCS; principal; 2023-09-19)
PROC: 30233N1 Transfusion of Nonautologous Red Blood Cells into Peripheral Vein, Percutaneous Approach (ICD-10-PCS; 2023-09-19)
DX: J15.69 Pneumonia due to other Gram-negative bacteria (principal); I50.31 Acute diastolic (congestive) heart failure; I13.0 Hypertensive heart and chronic kidney disease with heart failure and stage 1 through stage 4 chronic kidney disease, or unspecified chronic kidney disease; N39.0 Urinary tract infection, site not specified; I69.354 Hemiplegia and hemiparesis following cerebral infarction affecting left non-dominant side; Z16.12 Extended spectrum beta lactamase (ESBL) resistance; E44.0 Moderate protein-calorie malnutrition; I74.9 Embolism and thrombosis of unspecified artery; G93.40 Encephalopathy, unspecified; N17.9 Acute kidney failure, unspecified; I48.0 Paroxysmal atrial fibrillation; D64.9 Anemia, unspecified; E11.319 Type 2 diabetes mellitus with unspecified diabetic retinopathy without macular edema; E87.5 Hyperkalemia; Z79.01 Long term (current) use of anticoagulants; E88.09 Other disorders of plasma-protein metabolism, not elsewhere classified; E11.51 Type 2 diabetes mellitus with diabetic peripheral angiopathy without gangrene; E78.5 Hyperlipidemia, unspecified; E11.22 Type 2 diabetes mellitus with diabetic chronic kidney disease; N18.9 Chronic kidney disease, unspecified; Z79.84 Long term (current) use of oral hypoglycemic drugs; J98.8 Other specified respiratory disorders; M71.20 Synovial cyst of popliteal space [Baker], unspecified knee; I27.20 Pulmonary hypertension, unspecified
CPT/HCPCS: 36415; 36600; 70030-TC; 70450; 71045; 76770; 82803; 83550; 83605; 83735; 83970; 84100; 84155; 84165; 84443; 84484; 85025; 86140; 86850; 86900; 86901; 86920; 87040; 93005; 93307; 94640; 94664; 94760; A4606; A4663; G0378; G0480; J0282; J0692; J1815; J1940; J2185; J2543; J3370; J3590; J7050; J7060; P9016; Q0144